=== PATIENT | female | born 1995 | race Caucasian/White ===

== ENCOUNTER 2021-06-22 18:03 | Emergency (ER) | payer OTHER ==
[~2021-06-22 18:03] MED LIST: HEPARIN SO5000 UNIT1 INJ; PRENATAL VITAM1 EAC5 PO
== END 2021-06-22 20:45 | disposition home or self-care (01) ==
LOC: ER1 18:03
DX: G89.29 Other chronic pain (principal); M54.50 Low back pain, unspecified; K59.09 Other constipation
CPT/HCPCS: 81001; 96372; 99283; J1885